=== PATIENT | male | born 1985 | race Caucasian/White ===

== ENCOUNTER 2020-01-04 09:17 | Emergency (ER) | payer MEDICAID ==
[~2020-01-04] VITALS: Ht 170.2 cm; Wt 79.0 kg
[2020-01-04 09:20] VITALS: BP 129/78
[2020-01-04] MEDS ORDERED: LIDOcaine 1% W/epiNEPHrine 1:200,000 10ml vial IJ ONE (10:15)
[2020-01-04] MEDS ORDERED: ibuprofen tablet 400 MG TABLET PO ONE (10:15)
== END 2020-01-04 10:46 | disposition left against medical advice (07) ==
LOC: ER 09:17
DX: S62.324A Displaced fracture of shaft of fourth metacarpal bone, right hand, initial encounter for closed fracture (principal); F17.210 Nicotine dependence, cigarettes, uncomplicated; W22.01XA Walked into wall, initial encounter; Y93.89 Activity, other specified; Y92.89 Other specified places as the place of occurrence of the external cause; Y99.8 Other external cause status
CPT/HCPCS: 73130; 99283

== ENCOUNTER 2020-01-08 09:10 | Emergency (ER) | payer MEDICAID ==
[~2020-01-08] VITALS: Ht 170.2 cm; Wt 86.0 kg
[2020-01-08 09:14] VITALS: BP 123/92
== END 2020-01-08 10:01 | disposition home or self-care (01) ==
LOC: ER 09:10
DX: S62.91XA Unspecified fracture of right hand, initial encounter for closed fracture (principal); W22.01XA Walked into wall, initial encounter; Y93.89 Activity, other specified; Y92.89 Other specified places as the place of occurrence of the external cause; Y99.8 Other external cause status
CPT/HCPCS: 29125; 99283

== ENCOUNTER 2021-05-05 18:09 | Emergency (ER) | payer MEDICAID ==
[~2021-05-05] VITALS: Ht 170.2 cm; Wt 79.5 kg
[2021-05-05 18:29] VITALS: BP 118/91
[2021-05-05 19:03] LABS: BASOPHILS % (AUTO) 0.5 % (0-1); EOSINOPHILS # (AUTO) 0.1 X10'3 (0-0.9); EOSINOPHILS % (AUTO) 1.4 % (0-6); HEMATOCRIT 42.4 % (42.0-52.0); HEMOGLOBIN 14.3 g/dl (14.0-17.9); LYMPHOCYTES # (AUTO) 1.6 X10'3 (1.1-4.8); LYMPHOCYTES % (AUTO) 23.4 % (21-51); MEAN CORPUSCULAR HEMOGLOBIN 32.3 PG (27.0-31.0); MEAN CORPUSCULAR HGB CONC 33.7 g/dL (33.0-36.5); MEAN PLATELET VOLUME 8.2 FL (7.4-10.4); MONOCYTES # (AUTO) 0.5 X10'3 (0-0.9); MONOCYTES % (AUTO) 7.9 % (2-12); NEUTROPHILS # (AUTO) 4.6 X10'3 (1.8-7.7); NEUTROPHILS % (AUTO) 66.8 % (42-75); PLATELET COUNT 275 X10'3 (140-440); RED BLOOD COUNT 4.42 X10'6 (4.70-6.10); RED CELL DISTRIBUTION WIDTH 12.7 % (11.5-14.5); WHITE BLOOD COUNT 6.8 X10'3 (4.5-11.0)
[2021-05-05 19:03] LABS: URINE AMPHETAMINE SCREEN POSITIVE (Neg); URINE BARBITUATE SCREEN NEGATIVE (Neg); URINE BENZODIAZEPINES SCREEN NEGATIVE (Neg); URINE CANNABINOID SCREEN POSITIVE (Neg); URINE COCAINE SCREEN NEGATIVE (Neg); URINE METHADONE SCREEN NEGATIVE (Neg); URINE OPIATE SCREEN NEGATIVE (Neg); URINE PHENCYCLIDINE SCREEN NEGATIVE (Neg)
[2021-05-05 19:17] LABS: ALANINE AMINOTRANSFERASE 41 U/L (12-78); ALBUMIN 3.9 G/DL (3.4-5.0); ALBUMIN/GLOBULIN RATIO 1.2 (1.1-1.5); ALKALINE PHOSPHATASE 91 IU/L (46-116); ANION GAP 13 (8-16); ASPARTATE AMINO TRANSFERASE 43 U/L (10-37); BILIRUBIN,TOTAL 1.4 MG/DL (0.1-1.0); BLOOD UREA NITROGEN 21 MG/DL (7-18); BUN/CREATININE RATIO 25.3 (5.4-32.0); CHLORIDE 101 MMOL/L (99-107); CREATININE 0.83 MG/DL (0.60-1.10); GLUCOSE 92 MG/DL (70-104); POTASSIUM 4.1 MMOL/L (3.5-5.1); SODIUM 139 MMOL/L (135-145); TOTAL CARBON DIOXIDE 24.6 MMOL/L (24-32); TOTAL PROTEIN 7.2 G/DL (6.4-8.2); eGFR > 90 ML/MIN
[2021-05-05] MEDS ORDERED: HYDR-3686 PO (20:33)
[2021-05-05] MEDS ORDERED: hydrOXYzine 25 MG tablet PO ONE (21:10)
== END 2021-05-05 21:37 | disposition home or self-care (01) ==
LOC: ER 18:10
DX: F19.951 Other psychoactive substance use, unspecified with psychoactive substance-induced psychotic disorder with hallucinations (principal); F15.10 Other stimulant abuse, uncomplicated; Z59.00 Homelessness unspecified; Z56.0 Unemployment, unspecified
CPT/HCPCS: 36415; 80053; 80305; 84443; 85025; 99283; Q0177

== ENCOUNTER 2021-05-27 21:41 | Emergency (ER) | payer MEDICAID ==
[~2021-05-27] VITALS: Ht 170.2 cm; Wt 79.5 kg
[2021-05-28 00:15] VITALS: BP 135/89
[2021-05-28] MEDS ORDERED: ketorolac trometh inj. 60 MG/2 ML VIAL IM ONE (01:40)
== END 2021-05-28 03:19 | disposition home or self-care (01) ==
LOC: ER 21:41
DX: M25.561 Pain in right knee (principal); M25.562 Pain in left knee; G89.29 Other chronic pain; F15.90 Other stimulant use, unspecified, uncomplicated; Z72.89 Other problems related to lifestyle; Z56.0 Unemployment, unspecified; Z59.00 Homelessness unspecified
CPT/HCPCS: 73560; 96372; 99283; J1885

== ENCOUNTER 2021-06-10 02:14 | Emergency (ER) | payer MEDICAID ==
[~2021-06-10] VITALS: Ht 170.2 cm; Wt 81.8 kg
[2021-06-10 02:16] VITALS: BP 125/81
--- NOTE | 2021-06-10 02:32 | NUR ---
PT PRESENTS TO ED WITH COMPLAINTS OF RIGHT GROIN HERNIA PAIN. STATES THAT HE HAS HAD THE ISSUE ABOUT 6 MONTHS. TONIGHT IT FELT LIKE HE WAS HAVING MORE DIFFICULT PAIN. NO ACUTE DISTRESS NOTED. UPON ASSESSMENT NO VISIBLE SIGNS OF SWELLING OR IRRITATION.
[2021-06-10] MEDS ORDERED: POLY119P2 PO (02:43)
--- NOTE | 2021-06-10 02:53 | NUR ---
PT NO LONGER IN BED IN ROOM 1, PRESUMABLY LEFT WITHOUT TX.
== END 2021-06-10 03:02 | disposition home or self-care (01) ==
LOC: ER 02:14
DX: K59.00 Constipation, unspecified (principal); F15.90 Other stimulant use, unspecified, uncomplicated; Z56.0 Unemployment, unspecified; Z59.00 Homelessness unspecified; Z72.89 Other problems related to lifestyle; Z79.899 Other long term (current) drug therapy
CPT/HCPCS: 99282